=== PATIENT | male | born 1955 | race Caucasian/White ===

== ENCOUNTER 2016-11-28 08:21 | Emergency (ER) | payer MEDICARE ==
[2016-11-28 09:07] LABS: HEMOGLOBIN 15.2 gm/dl (14.0-17.5); RED BLOOD COUNT 4.77 M/UL (4.20-5.50); WHITE BLOOD COUNT 8.1 K/UL (4.5-11.0)
[2016-11-28 09:20] LABS: BUN/CREATININE RATIO 19 (0-10)
[2017-01-09] MEDS ORDERED: METHADONE HCL10 MG PO (01:19)
[2017-01-09] MEDS ORDERED: PERCOCET 10-321 EACH PO (01:20)
[2017-01-09] MEDS ORDERED: NEURONTIN 400400 MG PO (01:20)
[2017-01-09] MEDS ORDERED: ADVAIR 250-501 EACH INH (01:21)
[2017-01-09] MEDS ORDERED: PROTONIX40 MG PO (01:21)
[2017-01-09] MEDS ORDERED: KLONOPIN TAB 00.5 MG PO (01:22)
[2017-01-09] MEDS ORDERED: ASPIRIN CHEWABL81 MG PO (15:05)
[2017-01-09] MEDS ORDERED: NITROSTAT 0.40.4 MG SL (15:07)
[2017-01-30] MEDS ORDERED: ZYLOPRIM 100 M100 MG PO (22:54)
[2017-01-30] MEDS ORDERED: MAALOX PLUS 3030 ML PO (22:54)
[2017-01-30] MEDS ORDERED: REGLAN5 MG PO (23:19)
== END 2016-11-28 16:55 | disposition home or self-care (01) ==
LOC: ER1 08:21
PROVIDERS: Family Medicine
DX: R07.9 Chest pain, unspecified (principal); G89.4 Chronic pain syndrome; F41.9 Anxiety disorder, unspecified
CPT/HCPCS: 36415; 73564; 80053; 82550; 82553; 83874; 84484; 85025; 93005; 96361; 96374; 96375; 96376; 99285; J2060; J2270; J2405; J7040; J7050; Q9965

== ENCOUNTER 2021-12-06 13:16 | Inpatient (IN) | payer MEDICARE ==
[~2021-12-06] VITALS: Ht 185.4 cm; Wt 99.8 kg
[~2021-12-06 13:16] MED LIST: ADVAIR 250-501 EACH INH; ASPIRIN CHEWABL81 MG PO; CYMBALTA60 MG PO; DAILY VITE1 EACH PO; GABAPENTIN400 MG PO; HUMALOG 10100 UNITS/ SC; HYDROXYZINE HCL25 MG PO; KLONOPIN TAB 00.5 MG PO; KLONOPIN1 MG PO; LEVEMIR FL100 UNIT/1 SQ; LODINE CAP 300300 MG PO; MAALOX PLUS 3030 ML PO; MERREM I.V. 50500 MG IV; METHADONE HCL10 MG PO; NEURONTIN 100100 MG PO; NEURONTIN 400400 MG PO; NITROSTAT 0.40.4 MG SL; NORCO 5-325 TA1 EACH PO; NORFLEX 100 MG100 MG PO; OXYCODONE HCL10 MG PO; PERCOCET 10-321 EACH PO; PERCOCET 5-3251 EACH PO; PERCOCET 5/325 T1 EA PO; PROTONIX40 MG PO; REGLAN5 MG PO; REQUIP0.5 MG PO; REQUIP1 MG PO; VITAMIN C 500500 MG PO; ZOFRAN4 MG PO; ZYLOPRIM 100 M100 MG PO; ZYLOPRIM 300 M300 MG PO; ZYVOX600 MG PO
[2021-12-07] MEDS ORDERED: FAMOTIDINE40 MG PO (10:53)
[2021-12-07] MEDS ORDERED: HYDROXYZINE HCL50 MG PO (10:54)
[2021-12-07] MEDS ORDERED: PROTONIX 40 MG40 M1 PO (10:54)
[2021-12-07] MEDS ORDERED: PROMETHAZINE HC25 M1 PO (10:54)
[2021-12-07] MEDS ORDERED: LISINOPRIL20 MG PO (10:55)
[2021-12-07 14:40] LABS: HEMOGLOBIN 9.4 gm/dl (14.0-17.5); RED BLOOD COUNT 3.24 M/UL (4.20-5.50); WHITE BLOOD COUNT 4.4 K/UL (4.5-11.0)
[2021-12-07 15:09] LABS: BUN/CREATININE RATIO 17 (0-10)
[2021-12-08 03:23] LABS: RED BLOOD COUNT 3.43 M/UL (4.20-5.50); WHITE BLOOD COUNT 4.5 K/UL (4.5-11.0)
[2021-12-08 03:59] LABS: BUN/CREATININE RATIO 18 (0-10)
--- NOTE | 2021-12-08 11:01 | NUR ---
Dr. Stevens came to see and patient did the wet to dry dressing with iodine.
[2021-12-09 04:36] LABS: HEMOGLOBIN 10.1 gm/dl (14.0-17.5); RED BLOOD COUNT 3.54 M/UL (4.20-5.50); WHITE BLOOD COUNT 4.4 K/UL (4.5-11.0)
[2021-12-09 04:56] LABS: BUN/CREATININE RATIO 21 (0-10)
[2021-12-10 02:18] LABS: HEMOGLOBIN 9.8 gm/dl (14.0-17.5); RED BLOOD COUNT 3.43 M/UL (4.20-5.50); WHITE BLOOD COUNT 5.3 K/UL (4.5-11.0)
[2021-12-10 02:50] LABS: BUN/CREATININE RATIO 26 (0-10)
[2021-12-11 04:41] LABS: HEMOGLOBIN 9.3 gm/dl (14.0-17.5); RED BLOOD COUNT 3.21 M/UL (4.20-5.50)
[2021-12-11 04:42] LABS: WHITE BLOOD COUNT 11.4 K/UL (4.5-11.0)
[2021-12-11 05:06] LABS: BUN/CREATININE RATIO 26 (0-10)
[2021-12-12 02:59] LABS: HEMOGLOBIN 9.7 gm/dl (14.0-17.5); RED BLOOD COUNT 3.25 M/UL (4.20-5.50)
[2021-12-12 03:00] LABS: WHITE BLOOD COUNT 7.7 K/UL (4.5-11.0)
[2021-12-12 03:19] LABS: BUN/CREATININE RATIO 21 (0-10)
[2021-12-13 03:26] LABS: HEMOGLOBIN 9.6 gm/dl (14.0-17.5); RED BLOOD COUNT 3.28 M/UL (4.20-5.50); WHITE BLOOD COUNT 6.6 K/UL (4.5-11.0)
[2021-12-13 03:49] LABS: BUN/CREATININE RATIO 25 (0-10)
[2021-12-14 02:34] LABS: HEMOGLOBIN 9.6 gm/dl (14.0-17.5); RED BLOOD COUNT 3.33 M/UL (4.20-5.50); WHITE BLOOD COUNT 6.5 K/UL (4.5-11.0)
[2021-12-14 03:06] LABS: BUN/CREATININE RATIO 23 (0-10)
--- NOTE | 2021-12-14 17:33 | NUR ---
PT DRESSING CHANGED PER DR. LIU ORDER APPROX 2:30PM TODAY. NO SIGNS OF INFECTION PRESENT. WOUND HEALING. PT. TOLERATED WELL
[2021-12-15 03:23] LABS: BUN/CREATININE RATIO 20 (0-10)
--- NOTE | 2021-12-15 11:35 | NUR ---
PICC LINE DRESSING CHANGED AND RIGHT FOOT DRESSING CHANGED AT THIS TIME. PT. KRYS. WELL
[2021-12-16 04:57] LABS: BUN/CREATININE RATIO 20 (0-10)
[2021-12-16] MEDS ORDERED: OXYCODONE-ACET1 EACH PO (09:58)
[2021-12-16] MEDS ORDERED: GABAPENTIN400 MG PO (09:58)
[2021-12-16] MEDS ORDERED: HUMALOG 10100 UNITS/ SC (09:58)
[2021-12-16] MEDS ORDERED: POLYETHYLENE GL17 GM PO (09:58)
[2021-12-16] MEDS ORDERED: LANTUS INS100 UTS/M1 SC (09:58)
[2021-12-16] MEDS ORDERED: VANCOMYCIN1 GM/2002 IV (10:03)
[2021-12-16] MEDS ORDERED: ROCEPHIN 2 GM AD2 GM IV (10:03)
--- NOTE | 2021-12-16 10:31 | NUR ---
PATIENT R FOOT DRESSING CHANGED. NO SIGNS OF INFECTION, WOUND HEALING WELL. PATIENT PARTICIPATED WITH DRESSING CHANGE AND TOLERATED DRESSING CHANGE WELL.
--- NOTE | 2021-12-16 14:46 | NUR ---
CALLED REPORT TO ELIEZER AT [facility], PICC LINE LEFT IN AT FACILITY REQUEST. AWAITING EMS
== END 2021-12-17 01:53 | disposition swing bed (61) | DRG 240 ==
LOC: M/S 18:15
PROVIDERS: Internal Medicine; ADMIT Internal Medicine
PROC: 02HV33Z Insertion of Infusion Device into Superior Vena Cava, Percutaneous Approach (ICD-10-PCS; principal; 2021-12-07)
PROC: 0L8N3ZZ Division of Right Lower Leg Tendon, Percutaneous Approach (ICD-10-PCS; 2021-12-10)
PROC: 0Y6M0ZF Detachment at Right Foot, Partial 5th Ray, Open Approach (ICD-10-PCS; 2021-12-10)
PROC: 0Y6M0ZC Detachment at Right Foot, Partial 3rd Ray, Open Approach (ICD-10-PCS; 2021-12-10)
PROC: 0Y6M0ZD Detachment at Right Foot, Partial 4th Ray, Open Approach (ICD-10-PCS; 2021-12-10)
DX: E11.52 Type 2 diabetes mellitus with diabetic peripheral angiopathy with gangrene (principal); I96 Gangrene, not elsewhere classified; M86.171 Other acute osteomyelitis, right ankle and foot; E11.40 Type 2 diabetes mellitus with diabetic neuropathy, unspecified; Z96.641 Presence of right artificial hip joint; E11.69 Type 2 diabetes mellitus with other specified complication; I10 Essential (primary) hypertension; F41.9 Anxiety disorder, unspecified; G89.29 Other chronic pain; M10.9 Gout, unspecified; K59.00 Constipation, unspecified; L97.519 Non-pressure chronic ulcer of other part of right foot with unspecified severity; E11.628 Type 2 diabetes mellitus with other skin complications; E11.610 Type 2 diabetes mellitus with diabetic neuropathic arthropathy; Z89.432 Acquired absence of left foot; Z90.49 Acquired absence of other specified parts of digestive tract; Z88.0 Allergy status to penicillin; Z79.4 Long term (current) use of insulin; Z79.899 Other long term (current) drug therapy; Z98.890 Other specified postprocedural states
CPT/HCPCS: 36415; 73630; 73718; 80048; 80202; 82962; 83036; 85025; 85610; 85652; 86140; 87070; 87205; 93005; 93926; 97161; 97166; 97535; C1751; J0696; J1100; J1170; J1650; J1885; J2001; J2185; J2270; J2370; J2405; J2704; J2795; J3370; J7070; Q4133; U0002

== ENCOUNTER 2022-02-05 12:41 | Inpatient (IN) | payer MEDICARE ==
[~2022-02-05] VITALS: Ht 185.4 cm; Wt 93.0 kg
[~2022-02-05 12:41] MED LIST changes: +FAMOTIDINE40 MG PO; +HYDROCODON-ACE1 EAC2 PO; +HYDROXYZINE HCL50 MG PO; +LANTUS INS100 UTS/M1 SC; +LISINOPRIL20 MG PO; +OXYCODONE-ACET1 EACH PO; +POLYETHYLENE GL17 GM PO; +PROMETHAZINE HC25 M1 PO; +PROTONIX 40 MG40 M1 PO; +ROCEPHIN 2 GM AD2 GM IV; +VANCOMYCIN1 GM/2002 IV
[2022-02-05 13:48] LABS: HEMOGLOBIN 13.8 gm/dl (14.0-17.5); RED BLOOD COUNT 4.5 M/UL (4.20-5.50)
[2022-02-05 14:19] LABS: BUN/CREATININE RATIO 31 (0-10)
[2022-02-06 03:43] LABS: HEMOGLOBIN 11.3 gm/dl (14.0-17.5); RED BLOOD COUNT 3.8 M/UL (4.20-5.50); WHITE BLOOD COUNT 7.7 K/UL (4.5-11.0)
[2022-02-06 04:03] LABS: BUN/CREATININE RATIO 29 (0-10)
[2022-02-07 08:14] LABS: BUN/CREATININE RATIO 20 (0-10)
[2022-02-07] MEDS ORDERED: FAMOTIDINE40 MG PO (10:35)
[2022-02-07] MEDS ORDERED: GABAPENTIN300 MG PO (10:37)
[2022-02-07] MEDS ORDERED: ATORVASTATIN CA40 MG PO (10:38)
[2022-02-07] MEDS ORDERED: TEGRETOL200 MG PO (10:39)
[2022-02-07] MEDS ORDERED: LEVEMIR FL100 UNIT/1 SQ (10:41)
[2022-02-07] MEDS ORDERED: HYDROXYZINE HCL50 MG PO (10:43)
[2022-02-08 04:45] LABS: BUN/CREATININE RATIO 21 (0-10)
[2022-02-08] MEDS ORDERED: LEVOFLOXACIN500 MG PO (10:54)
== END 2022-02-08 15:25 | disposition home or self-care (01) | DRG 557 ==
LOC: ER1 12:41 → CDU 17:22 → M/S 18:44
PROVIDERS: Physician Assistant; ADMIT Internal Medicine
DX: M62.82 Rhabdomyolysis (principal); G92.9 Unspecified toxic encephalopathy; Z20.822 Contact with and (suspected) exposure to COVID-19; T39.95XA Adverse effect of unspecified nonopioid analgesic, antipyretic and antirheumatic, initial encounter; E11.9 Type 2 diabetes mellitus without complications; I10 Essential (primary) hypertension; L89.321 Pressure ulcer of left buttock, stage 1; L89.311 Pressure ulcer of right buttock, stage 1; R29.6 Repeated falls; B95.62 Methicillin resistant Staphylococcus aureus infection as the cause of diseases classified elsewhere; F41.9 Anxiety disorder, unspecified; M10.9 Gout, unspecified; Z88.1 Allergy status to other antibiotic agents; Z88.0 Allergy status to penicillin; Z79.4 Long term (current) use of insulin; Z89.431 Acquired absence of right foot; Z89.432 Acquired absence of left foot
CPT/HCPCS: 36415; 70450; 71045; 73080; 80048; 80053; 81001; 82550; 82553; 82962; 83605; 83690; 84484; 85025; 85610; 85730; 87040; 93005; 97116; 97161; 97166; G0378; Q0177